=== PATIENT | female | born 1990 | race Hispanic/Latino ===

== ENCOUNTER 2017-08-31 15:25 | Observation (INO) | payer BC, MEDICAID ==
[~2017-08-31] VITALS: Ht 170.2 cm; Wt 103.0 kg
[2017-08-31 16:23] LABS: APPEARANCE,URINE Clear (CLEAR); BILIRUBIN,URINE Small (NEGATIVE); COLOR,URINE Dark Yellow (YELLOW); GLUCOSE, URINE (UA) Negative (NEGATIVE); KETONES,URINE 15 mg/dL (NEGATIVE); LEUKOCYTE ESTERASE ,URINE Negative (NEGATIVE); NITRATE,URINE Negative (NEGATIVE); OCCULT BLOOD,URINE Trace (NEGATIVE); PH,URINE 5.5 (5.0-8.0); PROTEIN,URINE POS 2+ (NEGATIVE)
[2017-08-31 16:27] LABS: BASOPHILS % (AUTO) 0.7 % (0.0-5.0); EOSINOPHILS % (AUTO) 0.5 % (0.0-8.0); HEMATOCRIT 26.2 % (36-48); LYMPHOCYTES % (AUTO) 19.1 % (21.0-51.0); MEAN CORPUSCULAR HGB CONC 32.7 g/dL (32.0-36.0); MEAN CORPUSCULAR VOLUME 76.5 fL (79-99); MONOCYTES % (AUTO) 7.1 % (3.0-13.0); NEUTROPHILS % (AUTO) 72.6 % (40.0-77.0); NUCLEATED RED BLOOD CELLS 0.2 % (0.0-0.19); PLATELET COUNT (AUTO) 226 K/uL (130-400); RED BLOOD CELL COUNT(AUTO) 3.42 MIL/uL (4.00-5.50); RED CELL DISTRIBUTION WIDTH 17.6 % (11.0-15.5)
[2017-08-31 16:30] LABS: CREATININE 0.6 mg/dL (0.5-1.5); POTASSIUM 3.4 mmol/L (3.5-5.1)
[2017-08-31 16:32] LABS: INR 0.9 (0.85-1.15); PARTIAL THROMBOPLASTIN TIME 25.8 SEC (26.3-35.5); PROTHROMBIN TIME 9.5 SEC (9.6-11.6)
[2017-08-31 16:35] LABS: ALBUMIN 2.1 g/dL (3.5-5.0); BILIRUBIN,TOTAL 0.9 mg/dL (0.2-1.0); TOTAL PROTEIN, SERUM 6.6 g/dL (6.0-8.3)
[2017-08-31 16:36] LABS: BACTERIA,URINE Rare /HPF (None Seen); MUCUS,URINE Moderate LPF (None Seen); SQUAMOUS EPITHELIAL CELL,UR Few /LPF (0-2); WBC,URINE 0-1 /HPF (0-1)
[2017-08-31 17:25] VITALS: BP 127/78
== END 2017-08-31 17:35 | disposition home or self-care (01) ==
LOC: LDH 15:25
PROVIDERS: ADMIT Obstetrics & Gynecology; ATTEND Obstetrics & Gynecology
DX: Z34.93 Encounter for supervision of normal pregnancy, unspecified, third trimester (principal); Z3A.37 37 weeks gestation of pregnancy
CPT/HCPCS: 36415; 80053; 81001; 84550; 85025; 85384; 85610; 85730; G0378 ×3

== ENCOUNTER 2017-09-07 19:33 | Inpatient (IN) | payer BC, MEDICAID ==
[~2017-09-07] VITALS: Ht 170.2 cm; Wt 126.6 kg
[2017-09-07] MEDS ORDERED: LACTATED RINGERS 1000ML 1,000 ML IV PRN (20:13)
[2017-09-07] MEDS ORDERED: OXYTOCIN-LR 20 UNITS/1000 ML 1,000 ML IV SCH (20:15)
[2017-09-07 20:41] LABS: APPEARANCE,URINE Clear (CLEAR); BILIRUBIN,URINE Negative (NEGATIVE); COLOR,URINE Yellow (YELLOW); GLUCOSE, URINE (UA) Negative (NEGATIVE); KETONES,URINE 40 mg/dL (NEGATIVE); LEUKOCYTE ESTERASE ,URINE Negative (NEGATIVE); NITRATE,URINE Negative (NEGATIVE); OCCULT BLOOD,URINE Trace (NEGATIVE); PH,URINE 6.5 (5.0-8.0); PROTEIN,URINE POS 2+ (NEGATIVE)
[2017-09-07 20:49] LABS: BACTERIA,URINE Few /HPF (None Seen); MUCUS,URINE Few LPF (None Seen); RBC,URINE None Seen /HPF (0-1); WBC,URINE 0-1 /HPF (0-1)
[2017-09-07 21:26] LABS: BASOPHILS % (AUTO) 0.5 % (0.0-5.0); EOSINOPHILS % (AUTO) 1.1 % (0.0-8.0); HEMATOCRIT 24.2 % (36-48); LYMPHOCYTES % (AUTO) 16.6 % (21.0-51.0); MEAN CORPUSCULAR HEMOGLOBIN 25.2 pg (27.0-33.0); MEAN CORPUSCULAR HGB CONC 33.1 g/dL (32.0-36.0); MONOCYTES % (AUTO) 8.2 % (3.0-13.0); NEUTROPHILS % (AUTO) 73.6 % (40.0-77.0); NUCLEATED RED BLOOD CELLS 0.2 % (0.0-0.19); PLATELET COUNT (AUTO) 221 K/uL (130-400); RED BLOOD CELL COUNT(AUTO) 3.19 MIL/uL (4.00-5.50); RED CELL DISTRIBUTION WIDTH 18.3 % (11.0-15.5); WHITE BLOOD COUNT (AUTO) 7.4 K/uL (4.8-10.8)
[2017-09-07 21:39] LABS: CREATININE 0.5 mg/dL (0.5-1.5); INR 0.9 (0.85-1.15); PARTIAL THROMBOPLASTIN TIME 26.1 SEC (26.3-35.5); POTASSIUM 3.4 mmol/L (3.5-5.1); PROTHROMBIN TIME 9.5 SEC (9.6-11.6)
[2017-09-07 21:44] LABS: ALBUMIN 1.9 g/dL (3.5-5.0); TOTAL PROTEIN, SERUM 6.2 g/dL (6.0-8.3); URIC ACID 4.6 mg/dL (2.6-7.2)
[2017-09-07 22:02] VITALS: BP 138/82
[2017-09-08] MEDS ORDERED: LACTATED RINGERS 1000ML 1,000 ML IV ONE (03:50)
[2017-09-08] MEDS ORDERED: OXYTOCIN 10 USP UNITS/ML ONE ×2 (03:50→10:05)
[2017-09-08] MEDS ORDERED: OXYTOCIN 10 USP UNITS/ML 20 UNIT in LACTATED RINGERS 1000ML 1,000 ML IV SCH (04:00)
[2017-09-08] MEDS ORDERED: LACTATED RINGERS 500 ML 500 ML IV PRN (07:45)
[2017-09-08] MEDS ORDERED: EPHEDRINE SULFATE 50 MG/ML AMPULE IVP PRN (07:45)
[2017-09-08] MEDS ORDERED: NALOXONE HCL 0.4 MG/1 ML ML IV PRN (07:45)
[2017-09-08] MEDS ORDERED: DIPH,PERTUSS(ACELL),TET VAC/PF 0.5 ML VIAL IM PRN (09:45)
[2017-09-08] MEDS ORDERED: BENZOCAINE/LANOLIN/ALOE VERA 60 ML AEROSOL TP PRN (09:45)
[2017-09-08] MEDS ORDERED: ACETAMINOPHEN 325 MG TAB PO PRN (09:45)
[2017-09-08] MEDS ORDERED: LANOLIN 30GM OINTMENT TP PRN (09:45)
[2017-09-08] MEDS ORDERED: WITCH HAZEL 1 PAD TP PRN (09:45)
[2017-09-08] MEDS ORDERED: MEASLES/MUMPS/RUBELLA VACCINE, LIVE 0.5 ML/VIAL SQ PRN (09:45)
[2017-09-08] MEDS: IBUPROFEN 600 MG TABLET PO PRN ×3 (10:10→18:46)
[2017-09-08 10:50] VITALS: BP 138/80
[2017-09-08 11:39] VITALS: BP 147/94
[2017-09-08 11:46] VITALS: BP 140/99
[2017-09-08 13:38] VITALS: BP 145/85
[2017-09-08] MEDS: FLU VACC QS2017-18 36MOS UP/PF 60 MCG/0.5 ML ML IM NR (13:53)
[2017-09-08 15:59] VITALS: BP 144/99
[2017-09-08] MEDS ORDERED: MAGNESIUM SULFATE 1,000 ML IV PRN (17:27)
[2017-09-08] MEDS ORDERED: CALCIUM GLUCONATE 1 GM/10 ML VIAL IVP PRN (17:30)
[2017-09-08] MEDS ORDERED: MAGNESIUM 4GM PREMIX 100ML 100 ML IV PRN (17:30)
[2017-09-08] MEDS: LACTATED RINGERS 1000ML 1,000 ML IV SCH (18:46)
[2017-09-08] MEDS: DOCUSATE SODIUM 100 MG CAP PO SCH (22:47)
[2017-09-09 05:10] LABS: HEMATOCRIT 23.7 % (36-48); MEAN CORPUSCULAR HGB CONC 32.8 g/dL (32.0-36.0); MEAN CORPUSCULAR VOLUME 76.2 fL (79-99); NUCLEATED RED BLOOD CELLS 0.1 % (0.0-0.19); PLATELET COUNT (AUTO) 224 K/uL (130-400); RED BLOOD CELL COUNT(AUTO) 3.11 MIL/uL (4.00-5.50); RED CELL DISTRIBUTION WIDTH 18.3 % (11.0-15.5); WHITE BLOOD COUNT (AUTO) 9.4 K/uL (4.8-10.8)
[2017-09-09] MEDS: IBUPROFEN 600 MG TABLET PO PRN ×2 (06:11→17:04)
[2017-09-09] MEDS ORDERED: SODIUM CHLORIDE 0.9% 1,000 ML IV PRN (06:15)
[2017-09-09 07:23] LABS: HEPATITIS Bs ANTIGEN SCREEN P Negative (Negative)
[2017-09-09] MEDS: LACTATED RINGERS 1000ML 1,000 ML IV SCH (10:48)
[2017-09-09 11:50] LABS: HEMATOCRIT 24.8 % (36-48)
[2017-09-09] MEDS: FLU VACC QS2017-18 36MOS UP/PF 60 MCG/0.5 ML ML IM NR (13:15)
[2017-09-09 14:35] VITALS: BP 142/91
[2017-09-09 15:39] VITALS: BP 131/93
[2017-09-09 19:57] VITALS: BP 140/88
[2017-09-09] MEDS: DOCUSATE SODIUM 100 MG CAP PO SCH (20:52)
[2017-09-09 23:02] VITALS: BP 142/79
[2017-09-10 03:21] VITALS: BP 140/85
[2017-09-10] MEDS: IBUPROFEN 600 MG TABLET PO PRN ×2 (06:24→12:38)
[2017-09-10 07:55] VITALS: BP 137/74
[2017-09-10] MEDS: DOCUSATE SODIUM 100 MG CAP PO SCH (09:10)
[2017-09-10] MEDS: LACTATED RINGERS 1000ML 1,000 ML IV SCH (09:11)
[2017-09-10 11:13] VITALS: BP 142/96
[2017-09-10] MEDS ORDERED: IBUP-2070 PO (11:38)
[2017-09-10] MEDS: FLU VACC QS2017-18 36MOS UP/PF 60 MCG/0.5 ML ML IM NR (13:04)
== END 2017-09-10 13:20 | disposition home or self-care (01) | DRG 775 ==
LOC: LDH 19:33 → WSH 09-08 10:49 → LDH 09-08 17:45 → WSH 09-09 14:35 → PREOBSVTOIN 09-22 19:32
PROVIDERS: ADMIT Obstetrics & Gynecology; ATTEND Obstetrics & Gynecology
PROC: 10E0XZZ Delivery of Products of Conception, External Approach (ICD-10-PCS; principal; 2017-09-08)
PROC: 10907ZC Drainage of Amniotic Fluid, Therapeutic from Products of Conception, Via Natural or Artificial Opening (ICD-10-PCS; 2017-09-08)
PROC: 3E033VJ Introduction of Other Hormone into Peripheral Vein, Percutaneous Approach (ICD-10-PCS; 2017-09-08)
PROC: 0HQ9XZZ Repair Perineum Skin, External Approach (ICD-10-PCS; 2017-09-08)
PROC: 00HU33Z Insertion of Infusion Device into Spinal Canal, Percutaneous Approach (ICD-10-PCS; 2017-09-08)
PROC: 3E0R3BZ Introduction of Anesthetic Agent into Spinal Canal, Percutaneous Approach (ICD-10-PCS; 2017-09-08)
PROC: 3E0234Z Introduction of Serum, Toxoid and Vaccine into Muscle, Percutaneous Approach (ICD-10-PCS; 2017-09-08)
PROC: 30233N1 Transfusion of Nonautologous Red Blood Cells into Peripheral Vein, Percutaneous Approach (ICD-10-PCS; 2017-09-09)
DX: O99.02 Anemia complicating childbirth (principal); O16.4 Unspecified maternal hypertension, complicating childbirth; D64.9 Anemia, unspecified; O99.344 Other mental disorders complicating childbirth; O70.0 First degree perineal laceration during delivery; F32.9 Major depressive disorder, single episode, unspecified; Z23 Encounter for immunization; Z37.0 Single live birth; Z3A.38 38 weeks gestation of pregnancy
CPT/HCPCS: 36415; 80053; 81001; 83735; 84550; 85025; 85027; 85384; 85610; 85730; 86592; 86850; 86900; 86901; 86922; 87340; 90715; A4314; J2590; J3475; J7120; P9016; Q2038

== ENCOUNTER 2017-09-18 04:49 | Observation (INO) | payer BC, MEDICAID ==
[~2017-09-18 04:49] MED LIST: IBUP-2070 PO
[2017-09-18 06:00] LABS: BASOPHILS % (AUTO) 1.7 % (0.0-5.0); EOSINOPHILS % (AUTO) 2.7 % (0.0-8.0); HEMATOCRIT 34.9 % (36-48); LYMPHOCYTES % (AUTO) 28.7 % (21.0-51.0); MEAN CORPUSCULAR HEMOGLOBIN 25.2 pg (27.0-33.0); MEAN CORPUSCULAR HGB CONC 32.7 g/dL (32.0-36.0); MEAN CORPUSCULAR VOLUME 77.1 fL (79-99); NEUTROPHILS % (AUTO) 57.9 % (40.0-77.0); PLATELET COUNT (AUTO) 344 K/uL (130-400); RED BLOOD CELL COUNT(AUTO) 4.53 MIL/uL (4.00-5.50); RED CELL DISTRIBUTION WIDTH 18.7 % (11.0-15.5); WHITE BLOOD COUNT (AUTO) 7.8 K/uL (4.8-10.8)
[2017-09-18 06:04] LABS: APPEARANCE,URINE Clear (CLEAR); BILIRUBIN,URINE Negative (NEGATIVE); COLOR,URINE Yellow (YELLOW); GLUCOSE, URINE (UA) Negative (NEGATIVE); KETONES,URINE Negative (NEGATIVE); LEUKOCYTE ESTERASE ,URINE Trace (NEGATIVE); NITRATE,URINE Negative (NEGATIVE); OCCULT BLOOD,URINE Moderate (NEGATIVE); PH,URINE 5.5 (5.0-8.0); PROTEIN,URINE Trace (NEGATIVE)
[2017-09-18 06:11] LABS: INR 0.95 (0.85-1.15); PARTIAL THROMBOPLASTIN TIME 27.8 SEC (26.3-35.5)
[2017-09-18 06:14] LABS: CREATININE 0.8 mg/dL (0.5-1.5); POTASSIUM 4.2 mmol/L (3.5-5.1)
[2017-09-18 06:15] LABS: BACTERIA,URINE Few /HPF (None Seen); MUCUS,URINE Moderate LPF (None Seen); SQUAMOUS EPITHELIAL CELL,UR Few /LPF (0-2)
[2017-09-18 06:16] LABS: ALBUMIN 2.8 g/dL (3.5-5.0); BILIRUBIN,TOTAL 0.8 mg/dL (0.2-1.0); TOTAL PROTEIN, SERUM 7.4 g/dL (6.0-8.3)
[2017-09-18 06:17] LABS: AMPHET/METH SCREEN,URINE NEGATIVE (NEGATIVE); BARBITURATE SCREEN, URINE NEGATIVE (NEGATIVE); BENZODIAZEPINES SCREEN,URINE NEGATIVE (NEGATIVE); CANNABINOID SCREEN,URINE NEGATIVE (NEGATIVE); COCAINE SCREEN,URINE NEGATIVE (NEGATIVE); OPIATE SCREEN,URINE NEGATIVE (NEGATIVE); PHENCYCLIDINE SCREEN,URINE NEGATIVE (NEGATIVE)
[2017-09-18] MEDS ORDERED: MAGNESIUM SULFATE 1,000 ML IV ONE (09:55)
[2017-09-18] MEDS ORDERED: MAGNESIUM 4GM PREMIX 100ML 100 ML IV ONE (09:56)
[2017-09-18] MEDS ORDERED: MAGNESIUM 4GM PREMIX 100ML 100 ML IV PRN ×2 (10:00)
[2017-09-18] MEDS ORDERED: CALCIUM GLUCONATE 1 GM/10 ML VIAL IVP PRN (10:00)
[2017-09-18] MEDS: LACTATED RINGERS 1000ML 1,000 ML IV SCH ×2 (10:22→22:49)
[2017-09-18] MEDS ORDERED: CALCIUM GLUCONATE 1 GM in SODIUM CHLORIDE 0.9% 50 ML IV PRN (11:15)
[2017-09-18] MEDS ORDERED: ACETAMINOPHEN EXTRA STRENGTH 500 MG TABLET PO PRN (12:00)
[2017-09-18] MEDS ORDERED: GADOBENATE DIMEGLUMINE 20 ML IV ONE (14:22)
[2017-09-19 14:55] VITALS: BP 136/87
[2017-09-19 16:55] VITALS: BP 148/92
[2017-09-19 18:55] VITALS: BP 134/72
[2017-09-19 20:02] VITALS: BP 134/88
[2017-09-19 22:02] VITALS: BP 138/83
[2017-09-20 00:02] VITALS: BP 136/72
[2017-09-20 03:02] VITALS: BP 129/82
[2017-09-20 05:02] VITALS: BP 131/87
[2017-09-20 07:54] VITALS: BP 137/61
[2017-09-20 11:32] VITALS: BP 140/90
== END 2017-09-20 13:00 | disposition home or self-care (01) ==
LOC: EDH 04:49 → EDHIP 08:59 → LDH 08:59 → WSH 09-19 14:51
PROVIDERS: ADMIT Obstetrics & Gynecology; ATTEND Obstetrics & Gynecology
DX: M54.2 Cervicalgia (principal); R94.31 Abnormal electrocardiogram [ECG] [EKG]; Z86.32 Personal history of gestational diabetes
CPT/HCPCS: 36415; 70450; 70544; 70547; 70553; 80053; 80305; 81001; 84550; 85025; 85610; 85730; 93005 ×3; 96360; 96361 ×2; 99285; A4510; A9577; G0378 ×52; J3475 ×2; J7120 ×2

== ENCOUNTER 2017-10-31 05:34 | Day surgery (SDC) | payer BC, MEDICAID ==
[2017-10-30 16:47] VITALS: BP 150/72
[2017-10-30 16:51] LABS: BASOPHILS % (AUTO) 0.8 % (0.0-5.0); EOSINOPHILS % (AUTO) 3.6 % (0.0-8.0); HEMATOCRIT 32.8 % (36-48); LYMPHOCYTES % (AUTO) 23.5 % (21.0-51.0); MEAN CORPUSCULAR HEMOGLOBIN 27.5 pg (27.0-33.0); MEAN CORPUSCULAR HGB CONC 34.6 g/dL (32.0-36.0); MEAN CORPUSCULAR VOLUME 79.6 fL (79-99); MONOCYTES % (AUTO) 7.8 % (3.0-13.0); NEUTROPHILS % (AUTO) 64.3 % (40.0-77.0); PLATELET COUNT (AUTO) 329 K/uL (130-400); RED BLOOD CELL COUNT(AUTO) 4.12 MIL/uL (4.00-5.50); RED CELL DISTRIBUTION WIDTH 21.5 % (11.0-15.5); WHITE BLOOD COUNT (AUTO) 9.9 K/uL (4.8-10.8)
[~2017-10-31] VITALS: Ht 170.2 cm; Wt 110.0 kg
[2017-10-31] VITALS (19 sets, daily range): BP systolic 120–139; BP diastolic 68–82
[~2017-10-31 05:34] MED LIST changes: +DEXAMETHASONE SOD PHOSPHATE 10MG/ML 1ML VIAL ONE; +FENTANYL CITRATE PF 50 MCG/1 ML 2ML VIAL ONE; +GLYCOPYRROLATE 0.2 MG/ML 5 ML VIAL ONE; -IBUP-2070 PO; +LIDOCAINE PF 2% 5ML ABBOJECT ONE; +MIDAZOLAM HCL 1 MG/ML 2ML VIAL ONE; +PROPOFOL 10 MG/ML 20ML VIAL IV ONE
[2017-10-31] MEDS ORDERED: LACTATED RINGERS 1000ML 1,000 ML IV ONE (05:46)
[2017-10-31] MEDS ORDERED: FENTANYL CITRATE PF 50 MCG/1 ML 2ML VIAL ONE (07:06)
[2017-10-31] MEDS ORDERED: ROCURONIUM BROMIDE 10MG/1ML 5ML VL ONE (07:06)
[2017-10-31] MEDS ORDERED: LACTATED RINGERS 1000ML 1,000 ML IV SCH (08:00)
[2017-10-31] MEDS ORDERED: KETOROLAC TROMETHAMINE 30MG/ML ONE (08:13)
== END 2017-10-31 09:30 | disposition home or self-care (01) ==
LOC: DAH 05:34
PROVIDERS: ATTEND Obstetrics & Gynecology
DX: Z30.2 Encounter for sterilization (principal); E66.9 Obesity, unspecified; Z87.891 Personal history of nicotine dependence
CPT/HCPCS: 36415; 58670; 84703; 85025; 86850; 86900; 86901; A4215; A4351; A4452; A4510; A4600; A4606; C1769 ×2; J1100; J1885; J2001; J2250; J2704; J3010 ×2; J3490 ×2; J7120